=== PATIENT | female | born 1990 | race American Indian/Alaskan Native ===

== ENCOUNTER 2018-09-20 21:07 | Emergency (ER) | payer MEDICAID ==
--- NOTE | 2018-09-20 21:14 | Emergency Department Report ---
Blank Doc - Documentation Documentation: This is a 28-year-old female that presents with right index finger pain. This initial assessment/diagnostic orders/clinical plan/treatment(s) is/are subject to change based on patient's health status, clinical progression and re- assessment by fellow clinical providers in the ED. Further treatment and workup at subsequent clinical providers discretion. Patient/guardians urged not to elope from the ED as their condition may be serious if not clinically assessed and managed. Initial orders include: 1- Patient sent to MAIN ED for further evaluation and treatment 2- Xray
[2018-09-20 21:20] VITALS: BP 143/87
--- NOTE | 2018-09-20 22:35 | XRay Report ---
PROCEDURE: XR FINGER(S) 2+V RT TECHNIQUE: AP, lateral, and oblique views of the right index finger HISTORY: Right index pain COMPARISONS: None . FINDINGS: There is no evidence for acute fracture or dislocation. Generalized swelling of the second digit is n oted. No air in the soft tissues is seen. No radiopaque foreign bodies are seen. Bony mineralization is normal and joint spaces are maintained. IMPRESSION: No acute bony abnormality noted. Soft tissue swelling of the second digit This document is electronically signed by Maria Luz Souza MD., September 20 2018 10:32:44 PM ET
[2018-09-20] MEDS ORDERED: IBUPROFEN PO ONE (23:50)
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
== END 2018-09-21 00:15 | disposition home or self-care (01) ==
LOC: ED 21:07
DX: S60.021A Contusion of right index finger without damage to nail, initial encounter (principal); I10 Essential (primary) hypertension; F17.200 Nicotine dependence, unspecified, uncomplicated; W22.03XA Walked into furniture, initial encounter; Y93.89 Activity, other specified; Y92.89 Other specified places as the place of occurrence of the external cause; Y99.8 Other external cause status
CPT/HCPCS: 99283

== ENCOUNTER 2018-10-12 10:47 | Emergency (ER) | payer OTHER, MEDICAID ==
[2018-10-12 11:28] VITALS: BP 158/104
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
[2018-10-12] MEDS ORDERED: IBUPROFEN PO ONE (13:59)
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
--- NOTE | 2018-10-12 14:58 | XRay Report ---
CERVICAL SPINE, 3 views: History: Neck pain. Findings: The vertebral bodies, disk spaces, posterior elements and prevertebral soft tissues are unremarkable. The dens is intact. No acute fracture or malalignment is identified. Impression: 1. No evidence for acute injury to the cervical spine.
== END 2018-10-12 14:56 | disposition home or self-care (01) ==
LOC: ED 10:47
DX: S16.1XXA Strain of muscle, fascia and tendon at neck level, initial encounter (principal); M25.511 Pain in right shoulder; M25.512 Pain in left shoulder; J30.9 Allergic rhinitis, unspecified; I10 Essential (primary) hypertension; F17.200 Nicotine dependence, unspecified, uncomplicated; V89.2XXA Person injured in unspecified motor-vehicle accident, traffic, initial encounter; Y93.89 Activity, other specified; Y92.488 Other paved roadways as the place of occurrence of the external cause; Y99.8 Other external cause status
CPT/HCPCS: 72040; 99283